=== PATIENT | male | born 1970 | race Caucasian/White ===

== ENCOUNTER 2017-04-23 13:11 | Emergency (ER) | payer MEDICAID ==
[~2017-04-23] VITALS: Ht 175.3 cm; Wt 107.0 kg
[2017-04-23] MEDS ORDERED: ACETAMINOPHEN 500MG TABLET PO ONE (15:15)
[2017-04-23 15:18] VITALS: BP 129/64
== END 2017-04-23 16:23 | disposition home or self-care (01) ==
LOC: ER 15:32
DX: K46.9 Unspecified abdominal hernia without obstruction or gangrene (principal)
CPT/HCPCS: 99282